=== PATIENT | female | born 1995 | race American Indian/Alaskan Native ===

== ENCOUNTER 2021-06-04 05:20 | Emergency (ER) | payer SELFPAY ==
[2021-06-04 05:28] VITALS: BP 181/101
--- NOTE | 2021-06-04 06:35 | Emergency Department Report ---
ED ENT HPI - General Chief complaint: Dental/Oral Stated complaint: SEVERE TOOTH PAIN Time Seen by Provider: 06/04/21 06:30 Source: patient Mode of arrival: Ambulatory Limitations: No Limitations - History of Present Illness Initial comments: 25 y/o cracked right lower molar 1 month ago while eating and develoepd pain to the area a couple days ago. MD complaint: tooth pain -: Gradual Severity: moderate Quality: aching, dull Consistency: constant Worsens with: eating, movement Associated Symptoms: toothache. denies: pain with swallowing, sore throat, tinnitus - Related Data Previous Rx's Medication Instructions Recorded Last Taken Type Amoxicillin [Amoxicillin TAB] 875 mg PO BID #20 tablet 06/04/21 Unknown Rx Chlorhexidine Mouthwash [Peridex] 15 ml MM BID #1 bottle 06/04/21 Unknown Rx Ketorolac [Toradol] 10 mg PO Q6H PRN #15 tablet 06/04/21 Unknown Rx Lidocaine Viscous 2% 5 ml MM Q3H PRN #120 udc 06/04/21 Unknown Rx Allergies Allergy/AdvReac Type Severity Reaction Status Date / Time No Known Allergies Allergy Unverified 06/04/21 05:23 ED Dental HPI - General Chief complaint: Dental/Oral Stated complaint: SEVERE TOOTH PAIN Time Seen by Provider: 06/04/21 06:30 Source: patient Mode of arrival: Ambulatory Limitations: No Limitations - Related Data Previous Rx's Medication Instructions Recorded Last Taken Type Amoxicillin [Amoxicillin TAB] 875 mg PO BID #20 tablet 06/04/21 Unknown Rx Chlorhexidine Mouthwash [Peridex] 15 ml MM BID #1 bottle 06/04/21 Unknown Rx Ketorolac [Toradol] 10 mg PO Q6H PRN #15 tablet 06/04/21 Unknown Rx Lidocaine Viscous 2% 5 ml MM Q3H PRN #120 udc 06/04/21 Unknown Rx Allergies Allergy/AdvReac Type Severity Reaction Status Date / Time No Known Allergies Allergy Unverified 06/04/21 05:23 ED Review of Systems ROS: Stated complaint: SEVERE TOOTH PAIN Other details as noted in HPI Comment: All other systems reviewed and negative ED Past Medical Hx - Past Medical History Previous Medical History?: No - Surgical History Past Surgical History?: No - Social History Smoking Status: Never Smoker Substance Use Type: None - Medications Home Medications: Home Medications Medication Instructions Recorded Confirmed Last Taken Type Amoxicillin [Amoxicillin TAB] 875 mg PO BID #20 tablet 06/04/21 Unknown Rx Chlorhexidine Mouthwash [Peridex] 15 ml MM BID #1 bottle 06/04/21 Unknown Rx Ketorolac [Toradol] 10 mg PO Q6H PRN #15 tablet 06/04/21 Unknown Rx Lidocaine Viscous 2% 5 ml MM Q3H PRN #120 udc 06/04/21 Unknown Rx ED Physical Exam - General Limitations: No Limitations General appearance: alert, in no apparent distress - Head Head exam: Present: atraumatic, normocephalic - Eye Eye exam: Present: normal appearance - ENT ENT exam: Present: mucous membranes moist, other (dental caries diffuse. errosion noded with adjacent erythema. No abscess. airway patent) - Neck Neck exam: Present: normal inspection, lymphadenopathy - Respiratory Respiratory exam: Present: normal lung sounds bilaterally. Absent: respiratory distress, wheezes, rales - Cardiovascular Cardiovascular Exam: Present: regular rate, normal rhythm. Absent: systolic murmur, diastolic murmur, rubs, gallop - GI/Abdominal GI/Abdominal exam: Present: soft, normal bowel sounds. Absent: distended, guarding, hypoactive bowel sounds, organomegaly - Extremities Exam Extremities exam: Present: normal inspection, full ROM, normal capillary refill - Back Exam Back exam: Present: normal inspection. Absent: CVA tenderness (R), CVA tenderness (L) - Neurological Exam Neurological exam: Present: alert, oriented X3, CN II-XII intact, normal gait - Psychiatric Psychiatric exam: Present: normal affect, normal mood - Skin Skin exam: Present: warm, dry, intact, normal color. Absent: rash ED Course Vital Signs 06/04/21 05:27 Temperature 98 F Pulse Rate 85 Respiratory 18 Rate Blood Pressure 181/101 [Right] O2 Sat by Pulse 100 Oximetry Critical care attestation.: If time is entered above; I have spent that time in minutes in the direct care of this critically ill patient, excluding procedure time. ED Disposition Clinical Impression: Dental caries, Dentalgia Disposition: HOME / SELF CARE / HOMELESS Is pt being admited?: No Does the pt Need Aspirin: No Condition: Stable Instructions: Dental Extraction, [id number], Preventive Dental Care, Adult, Acute Pain, Adult Referrals: [facility] [Outside] - 3-5 Days
== END 2021-06-04 06:39 | disposition home or self-care (01) ==
LOC: ED 05:20
DX: K08.89 Other specified disorders of teeth and supporting structures (principal); K02.9 Dental caries, unspecified; Z79.899 Other long term (current) drug therapy
CPT/HCPCS: 99281